=== PATIENT | male | born 1945 | race African-American/Black ===

== ENCOUNTER 2017-06-11 16:17 | Emergency (ER) | payer MEDICARE, OTHER ==
[~2017-06-11] VITALS: Ht 177.8 cm; Wt 108.0 kg
[~2017-06-11 16:17] MED LIST: DARV PO; PREM0.45 PO; SULF-154 PO; TYLE3 PO
[2017-06-11 16:25] VITALS: BP 152/72; PULSE 73; RESP 19; TEMP 98.3; O2SAT 97
--- NOTE | 2017-06-11 16:40 | PD ---
HPI Chief Complaint: General Weakness Time Seen by Provider: 16:30 Travel History International Travel<30 days: No Contact w/Intl Traveler<30days: No History of Present Illness HPI 72-year-old transgender female presents to the emergency department via [facility] complaining of weakness, nausea and transient right facial drooping that occurred approximately 1-1/2 hours ago. 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 Her coworkers stated that she had right-sided facial drooping which resolved within several minutes. In addition, her coworkers stated that she was altered and was not answering questions appropriately. Patient denies loss of consciousness or head trauma. Currently, patient states that she feels weak but is alert and oriented 3. States she had an episode similar 6 months ago she believes because she did not take her blood pressure medication in the morning. Patient states that she did take her blood pressure medication this morning. States that she does take hormones for her transgender status. Patient denies history of CVA, cardiac, or pulmonary issues. [facility] states that they gave her Zofran 4 mg for nausea. Denies chest pain, shortness of breath, abdominal pain. Denies leg pain. PFSH Past Medical History Menopausal: Yes : 0 Past Surgical History Other Surgery: Yes (SEBACEOUS CYST REMOVED) Social History Alcohol Use: Yes (WEEKENDS) Tobacco Use: No Substance Use: No Allergies-Medications (Allergen,Severity, Reaction): Coded Allergies: No Known Allergies (Verified , 02/06/10) Reported Meds & Prescriptions Reported Meds & Active Scripts Active Macrobid (Nitrofurantoin Monoh/Nitrofur Macro) 100 Mg Cap 100 Mg PO BID 7 Days Reported Depo-Estradiol Cypionate Inj (Estradiol Cypionate) 5 Mg/Ml Inj 20 Mg IM EVERY 2 WEEKS Xanax (Alprazolam) 0.5 Mg Tab 0.5 Mg PO HS PRN Hydrochlorothiazide 12.5 Mg Cap 12.5 Mg PO DAILY Review of Systems Except as stated in HPI: all other systems reviewed are Neg Physical Exam Narrative GENERAL: Well-developed well-nourished in no apparent distress, resting comfortably in bed SKIN: Focused skin assessment warm/dry. HEAD: Atraumatic. Normocephalic. EYES: Pupils equal and round. No scleral icterus. No injection or drainage. EOMI ENT: No nasal bleeding or discharge. Mucous membranes pink and moist. Equal rise and fall of the uvula NECK: Trachea midline. No JVD. CARDIOVASCULAR: Regular rate and rhythm. No murmur appreciated. RESPIRATORY: No accessory muscle use. Clear to auscultation. Breath sounds equal bilaterally. GASTROINTESTINAL: Abdomen soft, non-tender, nondistended. MUSCULOSKELETAL: No obvious deformities. No clubbing. No cyanosis. No edema. Homans sign negative bilaterally NEUROLOGICAL: Awake and alert. No obvious cranial nerve deficits. Motor grossly within normal limits. Normal speech. Negative pronator drift PSYCHIATRIC: Appropriate mood and affect; insight and judgment normal. Data Data Last Documented VS Vital Signs Date Time Temp Pulse Resp B/P (MAP) Pulse Ox O2 Delivery O2 Flow Rate FiO2 06/11/17 19:24 06/11/17 18:00 74 21 97 Room Air 06/11/17 16:25 98.3 Orders Orders Electrocardiogram (06/11/17 16:30) Prothrombin Time / Inr (Pt) (06/11/17 16:30) Act Partial Throm Time (Ptt) (06/11/17 16:30) Complete Blood Count With Diff (06/11/17 16:30) Comprehensive Metabolic Panel (06/11/17 16:30) Troponin I (06/11/17 16:30) Urinalysis - C+S If Indicated (06/11/17 16:30) Ct Brain W/O Iv Contrast(Rout) (06/11/17 16:30) Chest, Single Ap (06/11/17 16:30) Ecg Monitoring (06/11/17 16:30) Iv Access Insert/Monitor (06/11/17 16:30) Oximetry (06/11/17 16:30) Blood Glucose (06/11/17 16:30) Urine Culture (06/11/17 15:45) Ed Discharge Order (06/11/17 19:20) Labs Laboratory Tests Test 06/11/17 15:45 06/11/17 16:40 Urine Color LIGHT-YELLOW Urine Turbidity HAZY Urine pH 5.5 Urine Specific [place] 1.013 Urine Protein 30 mg/dL Urine Glucose (UA) NEG mg/dL Urine Ketones NEG mg/dL Urine Occult Blood NEG Urine Nitrite NEG Urine Bilirubin NEG Urine Urobilinogen LESS THAN 2.0 MG/DL Urine Leukocyte Esterase LARGE Urine RBC 2 /hpf Urine WBC 18 /hpf Urine Squamous Epithelial Cells 12 /hpf Urine Transitional Epithelial Cells 1 /hpf Urine Bacteria MOD /hpf Urine Hyaline Casts 3 /lpf Urine Mucus FEW /lpf Microscopic Urinalysis Comment CATH-CULTURE IND White Blood Count 13.4 TH/MM3 Red Blood Count 3.66 MIL/MM3 Hemoglobin 11.8 GM/DL Hematocrit 34.6 % Mean Corpuscular Volume 94.5 FL Mean Corpuscular Hemoglobin 32.2 PG Mean Corpuscular Hemoglobin Concent 34.0 % Red Cell Distribution Width 13.0 % Platelet Count 293 TH/MM3 Mean Platelet Volume 8.1 FL Neutrophils (%) (Auto) 68.8 % Lymphocytes (%) (Auto) 18.2 % Monocytes (%) (Auto) 9.0 % Eosinophils (%) (Auto) 3.2 % Basophils (%) (Auto) 0.8 % Neutrophils # (Auto) 9.2 TH/MM3 Lymphocytes # (Auto) 2.4 TH/MM3 Monocytes # (Auto) 1.2 TH/MM3 Eosinophils # (Auto) 0.4 TH/MM3 Basophils # (Auto) 0.1 TH/MM3 CBC Comment AUTO DIFF Differential Comment AUTO DIFF CONFIRMED Prothrombin Time 10.5 SEC Prothromb Time International Ratio 1.0 RATIO Activated Partial Thromboplast Time 19.1 SEC Blood Urea Nitrogen 8 MG/DL Creatinine 0.63 MG/DL Random Glucose 100 MG/DL Total Protein 7.2 GM/DL Albumin 3.4 GM/DL Calcium Level 8.5 MG/DL Alkaline Phosphatase 60 U/L Aspartate Amino Transf (AST/SGOT) 35 U/L Alanine Aminotransferase (ALT/SGPT) 25 U/L Total Bilirubin 0.2 MG/DL Sodium Level 137 MEQ/L Potassium Level 3.9 MEQ/L Chloride Level 102 MEQ/L Carbon Dioxide Level 26.7 MEQ/L Anion Gap 8 MEQ/L Estimat Glomerular Filtration Rate 153 ML/MIN Troponin I LESS THAN 0.02 NG/ML MDM Medical Decision Making Medical Screen Exam Complete: Yes Emergency Medical Condition: Yes Differential Diagnosis TIA, hypoglycemia, weakness, NSTEMI Narrative Course 72-year-old transgender female presents to the emergency department via [facility] complaining of weakness, nausea and transient right facial drooping that occurred approximately 1-1/2 hours ago. 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 Her coworkers stated that she had right-sided facial drooping which resolved within several minutes. In addition, her coworkers stated that she was altered and was not answering questions appropriately. Patient denies loss of consciousness or head trauma. Currently, patient states that she feels weak but is alert and oriented 3. States she had an episode similar 6 months ago she believes because she did not take her blood pressure medication in the morning. Patient states that she did take her blood pressure medication this morning. States that she does take hormones for her transgender status. Patient denies history of CVA, cardiac, or pulmonary issues. [facility] states that they gave her Zofran 4 mg for nausea. Denies chest pain, shortness of breath, abdominal pain. Denies leg pain. Vital signs stable. Physical exam findings consistent with a well-developed well-nourished 72-year- old transgender female resting comfortably no acute distress. No obvious neuro deficits. EKG demonstrates sinus rhythm with 1st degree heart block AL .218, rate 72 Labs demonstrate mild leukocytosis at 13.4, mild anemia at H&H 11.8/34.6. Cardiac enzymes negative, CMP unremarkable. Urinalysis possible for urinary tract infection. Upon further discussion with the patient, patient states that she ate a lunch that had been sitting out for a couple of hours. States that she has salad dressing which may have contributed to her nausea and vomiting episode. Patient adamantly denies history of right facial droop and says that the coworker who stated this is rather histrionic and there were no other coworkers who stated this. Patient states that the time she had symptoms of nausea with vomiting, she had what felt like a hot flash. Says this occurred previously after being outside in the heat. I suspect she is describing an episode of heat exhaustion previously. I am still concerned about a TIA and still recommend she stay. I strongly advised her to follow up with her PCP and consider a neurologist for further evaluation. Patient remains asymptomatic in the emergency department today. She ambulated out of the emergency department without assistance with her significant other. Macrobid for outpatient abx. AMA: The risks of leaving against medical advice without further evaluation treatment were discussed with the patient. These risks include cardiac dysfunction, cardiac dysrhythmia, possible heart attack, possible stroke or . The patient indicated understanding of these risks and appeared to have the capacity to make this decision. Diagnosis Primary Impression: Nausea & vomiting Qualified Codes: R11.2 - Nausea with vomiting, unspecified Additional Impressions: Weakness UTI (urinary tract infection) Qualified Codes: N30.00 - Acute cystitis without hematuria Admitting Information Admitting Physician Requests: Observation Referrals: Primary Care Physician Additional Instructions: Follow-up with primary care physician this week. If your symptoms persist or worsen return to the emergency department. Take all medications as prescribed. Consider follow-up with a neurologist. Scripts Nitrofurantoin Monohydrate Macrocrystals (Macrobid) 100 Mg Cap 100 MG PO BID for Infection for 7 Days, #14 CAP 0 Refills Prov: Bernard Mendoza MD 06/11/17 Disposition: 07 AGAINST MEDICAL ADVICE Condition: Stable Skye Wilson Jun 11, 2017 16:40
--- NOTE | 2017-06-11 16:55 | RADRPT ---
EXAM DATE/TIME: 06/11/2017 16:46 [facility] COMPARISON: No previous studies available for comparison. INDICATIONS : Vomiting. MEDICAL HISTORY : None. SURGICAL HISTORY : None. ENCOUNTER: Initial ACUITY: 1 day PAIN SCORE: 0/10 LOCATION: Bilateral chest FINDINGS: Portable AP view of the chest demonstrates a normal-sized cardiac silhouette. No effusion, consolidat ion, or pneumothorax is visualized. The bones and soft tissues demonstrate no acute abnormality. Lung s are underinflated with mild atelectasis at the lung bases. CONCLUSION: Underinflated examination with atelectasis at the lung bases. Otherwise, no acute cardiopulmonary abn ormality is identified. Benjamin Ogden MD on June 11, 2017 at 16:52 Board Certified Radiologist. This report was verified electronically.
[2017-06-11 17:02] LABS: AUTOMATED NEUTROPHIL # 9.2 TH/MM3 (1.8-7.7); BASOPHIL # 0.1 TH/MM3 (0-0.2); BASOPHIL % 0.8 % (0.0-2.0); EOSINOPHIL # 0.4 TH/MM3 (0-0.4); EOSINOPHIL % 3.2 % (0.0-4.0); HEMATOCRIT 34.6 % (39.0-51.0); HEMOGLOBIN 11.8 GM/DL (13.0-17.0); LYMPH % 18.2 % (9.0-44.0); LYMPHOCYTE # 2.4 TH/MM3 (1.0-4.8); MEAN CELL VOLUME 94.5 FL (80.0-100.0); MEAN CORPUSCULAR HEMOGLOBIN 32.2 PG (27.0-34.0); MEAN PLATELET VOLUME 8.1 FL (7.0-11.0); MONOCYTE # 1.2 TH/MM3 (0-0.9); NEUT % 68.8 % (16.0-70.0); PLATELET COUNT 293 TH/MM3 (150-450); RED BLOOD COUNT 3.66 MIL/MM3 (4.50-5.90); WHITE BLOOD COUNT 13.4 TH/MM3 (4.0-11.0)
[2017-06-11 17:11] LABS: PROTHROMBIN TIME - PATIENT 10.5 SEC (9.8-11.6)
[2017-06-11 17:15] LABS: ALT (GPT) 25 U/L (12-78)
[2017-06-11 17:19] LABS: ALKALINE PHOSPHATASE 60 U/L (45-117); TOTAL BILIRUBIN ADULT 0.2 MG/DL (0.2-1.0); TOTAL PROTEIN 7.2 GM/DL (6.4-8.2); TROPONIN I LESS THAN 0.02 NG/ML (0.02-0.05)
[2017-06-11 17:26] LABS: ALBUMIN 3.4 GM/DL (3.4-5.0); AST (GOT) 35 U/L (15-37); BICARBONATE 26.7 MEQ/L (21.0-32.0); BLOOD UREA NITROGEN 8 MG/DL (7-18); CALCIUM 8.5 MG/DL (8.5-10.1); CHLORIDE 102 MEQ/L (98-107); CREATININE 0.63 MG/DL (0.60-1.30); GLOMERULAR FILTRATION RATE 153 ML/MIN (>89); GLUCOSE,RANDOM 100 MG/DL (74-106); SODIUM (NA) 137 MEQ/L (136-145)
--- NOTE | 2017-06-11 17:33 | PD ---
Data Data Last Documented VS Vital Signs Date Time Temp Pulse Resp B/P (MAP) Pulse Ox O2 Delivery O2 Flow Rate FiO2 06/11/17 19:24 06/11/17 18:00 74 21 97 Room Air 06/11/17 16:25 98.3 Orders Orders Electrocardiogram (06/11/17 16:30) Prothrombin Time / Inr (Pt) (06/11/17 16:30) Act Partial Throm Time (Ptt) (06/11/17 16:30) Complete Blood Count With Diff (06/11/17 16:30) Comprehensive Metabolic Panel (06/11/17 16:30) Troponin I (06/11/17 16:30) Urinalysis - C+S If Indicated (06/11/17 16:30) Ct Brain W/O Iv Contrast(Rout) (06/11/17 16:30) Chest, Single Ap (06/11/17 16:30) Ecg Monitoring (06/11/17 16:30) Iv Access Insert/Monitor (06/11/17 16:30) Oximetry (06/11/17 16:30) Blood Glucose (06/11/17 16:30) Urine Culture (06/11/17 15:45) Ed Discharge Order (06/11/17 19:20) Labs Laboratory Tests Test 06/11/17 15:45 06/11/17 16:40 Urine Color LIGHT-YELLOW Urine Turbidity HAZY Urine pH 5.5 Urine Specific [place] 1.013 Urine Protein 30 mg/dL Urine Glucose (UA) NEG mg/dL Urine Ketones NEG mg/dL Urine Occult Blood NEG Urine Nitrite NEG Urine Bilirubin NEG Urine Urobilinogen LESS THAN 2.0 MG/DL Urine Leukocyte Esterase LARGE Urine RBC 2 /hpf Urine WBC 18 /hpf Urine Squamous Epithelial Cells 12 /hpf Urine Transitional Epithelial Cells 1 /hpf Urine Bacteria MOD /hpf Urine Hyaline Casts 3 /lpf Urine Mucus FEW /lpf Microscopic Urinalysis Comment CATH-CULTURE IND White Blood Count 13.4 TH/MM3 Red Blood Count 3.66 MIL/MM3 Hemoglobin 11.8 GM/DL Hematocrit 34.6 % Mean Corpuscular Volume 94.5 FL Mean Corpuscular Hemoglobin 32.2 PG Mean Corpuscular Hemoglobin Concent 34.0 % Red Cell Distribution Width 13.0 % Platelet Count 293 TH/MM3 Mean Platelet Volume 8.1 FL Neutrophils (%) (Auto) 68.8 % Lymphocytes (%) (Auto) 18.2 % Monocytes (%) (Auto) 9.0 % Eosinophils (%) (Auto) 3.2 % Basophils (%) (Auto) 0.8 % Neutrophils # (Auto) 9.2 TH/MM3 Lymphocytes # (Auto) 2.4 TH/MM3 Monocytes # (Auto) 1.2 TH/MM3 Eosinophils # (Auto) 0.4 TH/MM3 Basophils # (Auto) 0.1 TH/MM3 CBC Comment AUTO DIFF Differential Comment AUTO DIFF CONFIRMED Prothrombin Time 10.5 SEC Prothromb Time International Ratio 1.0 RATIO Activated Partial Thromboplast Time 19.1 SEC Blood Urea Nitrogen 8 MG/DL Creatinine 0.63 MG/DL Random Glucose 100 MG/DL Total Protein 7.2 GM/DL Albumin 3.4 GM/DL Calcium Level 8.5 MG/DL Alkaline Phosphatase 60 U/L Aspartate Amino Transf (AST/SGOT) 35 U/L Alanine Aminotransferase (ALT/SGPT) 25 U/L Total Bilirubin 0.2 MG/DL Sodium Level 137 MEQ/L Potassium Level 3.9 MEQ/L Chloride Level 102 MEQ/L Carbon Dioxide Level 26.7 MEQ/L Anion Gap 8 MEQ/L Estimat Glomerular Filtration Rate 153 ML/MIN Troponin I LESS THAN 0.02 NG/ML MDM Medical Record Reviewed: Yes Supervised Visit with ARLINE: Yes Narrative Course Please refer to mid-level note. The patient will sign out AMA. There was uncertainty regarding history. 1 of her friends stated that she had facial asymmetry. It seems as though she might have had a gastroenteritis/food poisoning after eating some creamy salad dressing. Patient has capacity for decision-making Diagnosis Primary Impression: Weakness Scripts Nitrofurantoin Monohydrate Macrocrystals (Macrobid) 100 Mg Cap 100 MG PO BID for Infection for 7 Days, #14 CAP 0 Refills Prov: Bernard Mendoza MD 06/11/17 Condition: Stable Bernard Mendoza MD Jun 11, 2017 17:33
[2017-06-11] MEDS ORDERED: HYDR12.57 PO (17:37)
[2017-06-11] MEDS ORDERED: ALPR.5 PO (17:37)
[2017-06-11 18:00] VITALS: BP 139/66; PULSE 74; RESP 21; O2SAT 97
--- NOTE | 2017-06-11 18:00 | RADRPT ---
EXAM DATE/TIME: 06/11/2017 17:40 [facility] COMPARISON: No previous studies available for comparison. INDICATIONS : General weakness and dysphasia. RADIATION DOSE: 44.63 CTDIvol (mGy) MEDICAL HISTORY : None SURGICAL HISTORY : None. ENCOUNTER: Initial ACUITY: 1 day PAIN SCALE: 0/10 LOCATION: cranial TECHNIQUE: Multiple contiguous axial images were obtained of the head. Using automated exposure control and adj ustment of the mA and/or kV according to patient size, radiation dose was kept as low as reasonably a chievable to obtain optimal diagnostic quality images. DICOM format image data is available electro nically for review and comparison. FINDINGS: CEREBRUM: There is mild generalized atrophy. Ventricles are normal given the degree of atrophy present. No brad dence of midline shift, mass lesion, hemorrhage or acute infarction. No extra-axial fluid collection s are seen. POSTERIOR FOSSA: The cerebellum and brainstem are intact. The 4th ventricle is midline. The cerebellopontine angle i s unremarkable. EXTRACRANIAL: Visualized sinuses are clear. SKULL: The calvaria is intact. No evidence of skull fracture. CONCLUSION: No acute intracranial abnormality is identified. Benjamin Ogden MD on June 11, 2017 at 17:56 Board Certified Radiologist. This report was verified electronically.
[2017-06-11] MEDS ORDERED: [UNRECOGNIZED DRUG - CODE] IM (18:52)
[2017-06-11 19:10] LABS: BACTERIA, URINE MOD /hpf; BILIRUBIN, URINE NEG (NEG); BLOOD, URINE NEG (NEG); GLUCOSE,URINE NEG (NEG); HYALINE CAST, URINE 3 /lpf (RARE); KETONE, URINE NEG (NEG); MUCUS URINE FEW /lpf (OCC); NITRITE,URINE NEG (NEG); PH, URINE 5.5 (5.0-8.5); SQUAMOUS EPITHELIAL CELL URINE 12 /hpf (0-5); TRANSITIONAL EPI CELLS, URINE 1 /hpf; URINE COLOR LIGHT-YELLOW (YELLW/STRAW); URINE LEUKOCYTE ESTERASE LARGE (NEG)
[2017-06-11] MEDS ORDERED: MACR100C2 PO (19:19)
--- NOTE | 2017-06-12 14:32 | EKG ---
Date Performed: 06/11/2017 Time Performed: 16:34:31 PTAGE: 72 years EKG: Sinus rhythm WITH FIRST DEGREE AV BLOCK LEFT ANTERIOR FASCICULAR BLOCK ABNORMAL ECG NO PREVIOUS TRACING DOCTOR: Deon Bruce Interpretating Date/Time 06/12/2017 14:30:22
== END 2017-06-11 19:31 | disposition left against medical advice (07) ==
LOC: NEPC 16:17
DX: R11.2 Nausea with vomiting, unspecified (principal); R53.1 Weakness; R29.810 Facial weakness; N30.00 Acute cystitis without hematuria; R94.31 Abnormal electrocardiogram [ECG] [EKG]; Z53.20 Procedure and treatment not carried out because of patient's decision for unspecified reasons
CPT/HCPCS: 70450; 71045; 80053; 81001; 84484; 85025; 85610; 85730; 87086; 93005; 99285